=== PATIENT | female | born 1950 | race Caucasian/White ===

== ENCOUNTER 2018-08-30 14:13 | Emergency (ER) | payer MEDICARE ==
[~2018-08-30] VITALS: Ht 165.1 cm; Wt 60.3 kg
[2018-08-30] MEDS ORDERED: PENI500T (14:21)
[2018-08-30] MEDS ORDERED: ATEN25TA (14:21)
[2018-08-30] MEDS ORDERED: IBUP-1022 (14:21)
[2018-08-30] MEDS ORDERED: ONDANSETRON 4 MG ORAL DISINTEGRATING TAB (Q0162 PER 1MG) PO ONE (15:30)
[2018-08-30 15:53] LABS: BASO # 0.1 10^3/uL (0.0-0.2); BASO % 0.8 % (0.0-1.0); EOS % 0.3 % (0.0-3.0); HEMATOCRIT 45.9 % (36.0-47.0); HEMOGLOBIN 15.7 g/dl (12.0-15.5); LYMPH # 1.4 10^3/uL (1.5-4.5); LYMPH % 17.7 % (24.0-44.0); MEAN CORPUSCULAR HGB CONC 34.2 g/dl (32.0-36.5); MEAN CORPUSCULAR VOLUME 96.4 fl (80.0-96.0); MONO # 0.3 10^3/uL (0.0-0.8); MONO % 3.8 % (0.0-5.0); NEUTROPHILS # 5.9 10^3/uL (1.8-7.7); PLATELET COUNT, AUTOMATED 244 10^3/uL (150-450); RED BLOOD COUNT 4.76 10^6/uL (4.00-5.40); WHITE BLOOD COUNT 7.6 10^3/uL (4.0-10.0)
[2018-08-30 16:06] LABS: BLOOD UREA NITROGEN 12 MG/DL (7-18); CALCIUM LEVEL 9.4 MG/DL (8.8-10.2); CARBON DIOXIDE LEVEL 28 MEQ/L (21-32); CHLORIDE LEVEL 106 MEQ/L (98-107); CREATININE FOR GFR 0.83 MG/DL (0.55-1.30); GLOMERULAR FILTRATION RATE > 60.0 (>45); GLUCOSE, FASTING 120 MG/DL (70-100); POTASSIUM SERUM 3.7 MEQ/L (3.5-5.1); SODIUM LEVEL 139 MEQ/L (136-145)
--- NOTE | 2018-08-30 16:07 | REP ---
CT Head without contrast HISTORY: Left hand paresthesias COMPARISON: None There is no intraparenchymal hemorrhage, acute infarct, mass or midline shift. The ventricular system is normal in appearance. There is no extra cerebral collection. There is no fracture. The visualized sinuses are clear. IMPRESSION: There is no intracranial lesion. Electronically Signed by Armando Douglas MD 08/30/2018 03:58 P
[2018-08-30] MEDS ORDERED: ONDA4TAB6 PO (16:52)
[2018-08-30 17:17] VITALS: BP 141/71
--- NOTE | 2018-08-31 10:17 | ECGEPIP ---
Stationary ECG Study [facility] - ED Test Date: 2018-08-30 Pat Name: WILLIAM RODRIGUEZ Department: Room: - Gender: F [employer]: ct : 1950 Requested By: JOANIE LARSEN PA-C. Order Number: [id number] Reading MD: Lena Lema Measurements Intervals Oscar Rate: 71 P: 72 PA: 160 QRS: 4 QRSD: 85 T: 47 QT: 396 QTc: 431 Interpretive Statements SINUS RHYTHM LEFT ATRIAL ENLARGEMENT NSTTW ABNORMALITY NO PRIOR FOR COMPARISON Electronically Signed On 08-31-2018 10:17:22 EDT by Lena Lema
== END 2018-08-30 17:20 | disposition home or self-care (01) ==
LOC: M ED 14:13
DX: G56.02 Carpal tunnel syndrome, left upper limb (principal); R11.0 Nausea; T36.0X5A Adverse effect of penicillins, initial encounter; I10 Essential (primary) hypertension; Z88.1 Allergy status to other antibiotic agents; Z88.8 Allergy status to other drugs, medicaments and biological substances; Z79.2 Long term (current) use of antibiotics; Z79.899 Other long term (current) drug therapy
CPT/HCPCS: 36415; 70450; 80048; 85025; 93005; 99284; Q0162

== ENCOUNTER 2023-04-20 09:52 | Day surgery (SDC) | payer MEDICARE ==
[~2023-04-20] VITALS: Ht 165.1 cm; Wt 61.7 kg
[~2023-04-20 09:52] MED LIST: ATEN25TA PO; BARLEY GRASS; CRAN450T4 PO; IBUP-1022; NS 1,000 ML IV ONE; ONDA4TAB6 PO; PENI500T; [UNRECOGNIZED DRUG - OTHER] PO; selenium
[2023-04-20 10:29] VITALS: TEMP 96.2
[2023-04-20] MEDS ORDERED: propofoL 200 MG/20 ML VIAL As Ordered ONE ×2 (11:50→11:51)
[2023-04-20 12:12] VITALS: BP 97/57; O2SAT 95
== END 2023-04-20 12:14 | disposition home or self-care (01) ==
LOC: M OPP 09:52
PROVIDERS: ATTEND Internal Medicine Gastroenterology
DX: K64.0 First degree hemorrhoids (principal); Z80.0 Family history of malignant neoplasm of digestive organs; Z88.1 Allergy status to other antibiotic agents; Z88.8 Allergy status to other drugs, medicaments and biological substances; I10 Essential (primary) hypertension; Z79.899 Other long term (current) drug therapy; M19.90 Unspecified osteoarthritis, unspecified site